=== PATIENT | female | born 1985 | race Caucasian/White ===

== ENCOUNTER 2020-09-03 21:07 | Emergency (ER) | payer BC, SELFPAY ==
[2020-09-03 21:31] VITALS: BP 135/82; PULSE 108; RESP 20; TEMP 36.7; O2SAT 100
--- NOTE | 2020-09-04 00:13 | ECG_ITS ---
Measurements Intervals [place] Rate: 71 P: 21 VT: 176 QRS: 66 QRSD: 101 T: 44 QT: 404 QTc: 440 Interpretive Statements SINUS RHYTHM BORDERLINE T WAVE ABNORMALITY- ANTERIOR LEADS BORDERLINE ECG Electronically Signed On 09-04-2020 6:52:44 CDT by Jamar Jones D.O.
--- NOTE | 2020-09-04 00:14 | ED.ANXIETY ---
HPI - Anxiety General Chief Complaint: Anxiety Stated Complaint: Feels cold,tingling fingers and hands Time Seen by Provider: 09/04/20 00:13 History of Present Illness HPI narrative: SHe was lying in bed when she noticed that her arms and legs felt cold. Then she developed numbness in her finger tips and her heart started racing. She took her buspirone, but her symptoms did not resolve. On my evaluation her symptoms have mostly resolved, but she reports feeling a little off and jesus tired. She has a h/o anxiety and panic attacks Related Data Allergies Allergy/AdvReac Type Severity Reaction Status Date / Time MOXIFLOXACIN HCL Allergy Mild Nausea and Uncoded 09/04/20 00:16 Vomiting Review of Systems Constitutional: Constitutional: Reports chills and Denies fever(s) Cardiovascular: Cardiovascular: Reports chest pain Respiratory: Respiratory: Denies dyspnea Neurologic: Reports dizziness, Reports numbness and Denies weakness Psychiatric: Psychiatric: Reports anxiety [facility] Past Medical History Medical History (Updated 09/04/20 @ 04:13 by Nate Fonseca MD) Anxiety disorder, unspecified Family History Family History Other Family history of lung cancer Hypertension Social History Social History Smoking status: Smoker, status unknown Alcohol intake: current Exam Const: General: healthy appearing, no acute distress and alert Orientation/consciousness: patient oriented x3 HENMT: Head: normal to inspection Neck: Neck: normal visual inspection and no lymphadenopathy Chest: Chest palpation & inspection: no tenderness Resp: Effort & Inspection: normal respiratory effort Auscultation: clear to auscultation bilaterally, no rales, no rhonchi and no wheezes Cardio: Jugular venous distension: no JVD Rate: regular rate Rhythm: regular rhythm Heart sounds: no murmurs GI: Inspection: non-distended GI Palp: Yes Soft to palpation and No Tenderness to palpation present (GI) Skin: General skin exam: normal color Neuro: General: patient oriented x3 and moves all extremities Speech: normal speech Extrem: General: no edema Psych: Appearance: well kempt Affect: Anxious affect present Course Vital Signs Vital signs: Vital Signs Temperature 36.7 C 09/03/20 21:31 Pulse Rate 108 H 09/03/20 21:31 Respiratory Rate 20 09/03/20 21:31 Blood Pressure 135/82 09/03/20 21:31 Pulse Oximetry 100 09/03/20 21:31 Temperature 36.3 C L 09/04/20 00:51 Pulse Rate 72 09/04/20 00:51 Respiratory Rate 16 09/04/20 00:51 Blood Pressure 112/51 L 09/04/20 00:51 Pulse Oximetry 98 09/04/20 00:51 MDM - Anxiety Differential Diagnosis Differential diagnosis: Likely panic disorder and acute anxiety Medical Records Attestation: I reviewed the patient's medical records. ECG Data EKG #1: Attestation: I personally reviewed and interpreted this ECG as follows: EKG Interpretation: normal rate, sinus rhythm, no ectopy, no ST changes, normal QRS, normal QT and NL axis Discharge Plan Discharge Clinical Impression: Panic disorder Patient Disposition: Home, Self-Care Condition: Stable Instructions: Panic Disorder (ED) Prescriptions: No Action hydroxyzine pamoate [Vistaril] 25 mg capsule 25 mg PO TID PRN (Reason: anxiety) Qty: 20 RF: 0 buspirone 7.5 mg tablet See Rx Instructions .ROUTE .COMPLEX Qty: 180 RF: 0 escitalopram oxalate 20 mg tablet 20 mg PO DAILY Qty: 90 RF: 1 bupropion HCl 150 mg tablet extended release 24 hr 150 mg PO QAM Qty: 90 RF: 1 Follow-up/Referrals: Prem Silva MD [Primary Care Provider] -
[2020-09-04 00:51] VITALS: BP 112/51; PULSE 72; RESP 16; TEMP 36.3; O2SAT 98
== END 2020-09-04 00:52 | disposition home or self-care (01) ==
PROVIDERS: Emergency Provider Emergency Medicine; PCP Family Medicine
DX: F41.0 Panic disorder [episodic paroxysmal anxiety] (principal); R94.31 Abnormal electrocardiogram [ECG] [EKG]
CPT/HCPCS: 93005; 99283

== ENCOUNTER 2020-11-07 06:46 | Outpatient (NON) | payer BC, SELFPAY ==
[2020-11-08 00:44] LABS: SARS-CoV-2 RNA PCR Negative
== END 2020-11-07 06:47 ==
LOC: ANHCOVIDDT 06:54
PROVIDERS: Visit Provider Nurse Practitioner Family
DX: R09.81 Nasal congestion (principal); Z20.828 Contact with and (suspected) exposure to other viral communicable diseases
CPT/HCPCS: 87635; C9803; U0003

== ENCOUNTER 2021-03-26 09:07 | Outpatient (CLI) | payer BC, SELFPAY ==
--- NOTE | 2021-03-30 12:34 | WPDHOLTEREM ---
Holter/Event Monitor Holter/Event Monitor Date of procedure: 03/26/21 Procedure Type: 48 hour holter monitor Indications: Palpitations Conclusion: 1. 48 hour holter monitor on 03/26/21. 2. Underlying rhythm is sinus rhythm. HR range 62-143 bpm; average HR 89 bpm. 3. There are 3 premature supraventricular complexes and 1 supraventricular couplet. No supraventricular tachycardia. 4. There are 10 premature ventricular complexes. No ventricular tachycardia. 5. No sinoatrial or atrioventricular blocks. No significant pauses greater than 2 seconds. 6. Patient reports symptoms of feeling hot, chest pains, rib pain which demonstrate sinus rhythm, HR range 75-97 bpm.
== END 2021-03-26 09:08 | disposition home or self-care (01) ==
PROVIDERS: PCP Family Medicine; Visit Provider Physician Assistant Medical
DX: R00.2 Palpitations (principal)
CPT/HCPCS: 93225; 93226

== ENCOUNTER 2021-08-13 08:37 | Outpatient (CLI) | payer OTHER, BC, SELFPAY ==
[2021-08-13 09:06] LABS: Basophils Percent Auto 0.2 % (0.2-1.2); Eosinophils Absolute Auto 0.2 K/mm3 (0-0.3); Eosinophils Percent Auto 2.2 % (0-4.4); Hematocrit 41.6 % (37.0-47.0); Hemoglobin 13.8 g/dL (12.0-15.0); Immature Granulocyte Absolute 0.05 K/mm3 (0.00-0.031); Immature Granulocyte Percent A 0.6 % (0-0.5); Lymphocytes Absolute Auto 2.84 K/mm3 (0.9-3.2); Lymphocytes Percent Auto 31.3 % (18.3-44.2); Mean Corpuscular HGB Conc 33.2 g/dl (32-36); Mean Corpuscular Hemoglobin 29.2 pg (26-34); Mean Corpuscular Volume 87.9 fl (80-100); Mean Platelet Volume 10.5 fl (7.4-10.4); Monocytes Absolute Auto 0.7 K/mm3 (0.1-0.6); Monocytes Percent Auto 7.6 % (2.6-8.5); Neutrophils Absolute Auto 5.3 K/mm3 (1.3-6.7); Neutrophils Percent Auto 58.1 % (45.5-73.1); Platelet Count Result 304 k/mm3 (150-375); Red Blood Count 4.73 M/mm3 (4.2-5.4); Red Cell Distribution Width 12.2 % (11.5-14.5); White Blood Count 9.1 K/mm3 (4.5-10.0)
== END 2021-08-13 08:38 | disposition home or self-care (01) ==
PROVIDERS: PCP Family Medicine; Visit Provider Obstetrics & Gynecology
DX: D21.9 Benign neoplasm of connective and other soft tissue, unspecified (principal); Z01.818 Encounter for other preprocedural examination
CPT/HCPCS: 36415; 85025; 86850; 86900; 86901

== ENCOUNTER 2021-08-20 02:00 | Day surgery (SDC) | payer OTHER, BC, SELFPAY ==
[2021-08-12 12:37] VITALS: BMI 40.1
--- NOTE | 2021-08-18 07:46 | PM.IMHP ---
H&P: HPI History of Present Illness Date/Time: 08/18/21 07:46 35 year para for salpingectomy. This patient has a history of pelvic pain dyspareunia discomfort she has an uterus is been refractory to therapy risks and benefits reviewed including exclusive of , aspiration bleeding, transfusion, perforation injury to bowel, bladder, ureters, or other internal organs with need for open laparotomy. She understands this will make her permanently infertile. She received the [employer] handout entitled hysterectomy as well as the [place] handout. She had all questions answered. She asked to proceed Chief Complaint: Enlarged uterus with pelvic pain and irregular bleeding refractory to medical therapy Review of Systems Review of Systems: All systems reviewed & are unremarkable except as noted in HPI and below PMFSH Past Medical History Medical History Abnormal laboratory test Adult BMI 37.0-37.9 kg/sq m Anxiety disorder, unspecified BMI 35.0-35.9,adult Family History Family History Other Family history of lung cancer Hypertension Social History Social History Smoking packs per day: 0.75 Smoking cigarettes per day: 15.0 Years smoked: 23 Smoking pack-years: 17.25 Smoking status: Current every day smoker Tobacco type: cigarettes Second hand tobacco smoke exposure: No Alcohol intake: current Drinks per week: 10 Alcohol use details: all different kinds Substance use: never Substance use type: does not use Gender identity (if verbalized by the patient): Female Spiritual care concerns: No Meds Home Medications and Allergies Home Medications Medication Instructions Recorded Confirmed Type norethindrone 1 mg-ethinyl 1 tablet PO DAILY #140 tablet 10/19/20 08/12/21 Rx estradiol 10 mcg (24)-iron 10 mcg(2) tablet escitalopram oxalate 20 mg tablet 20 mg PO DAILY #90 tablet 04/26/21 08/12/21 Rx bupropion HCl 150 mg 24 hr tablet, 150 mg PO QAM #90 tablet 05/14/21 08/12/21 Rx extended release buspirone 7.5 mg tablet See Rx Instructions .ROUTE 07/25/21 08/12/21 Rx .COMPLEX #180 tablet cholecalciferol (vitamin D3) 125 125 mcg PO DAILY 08/09/21 08/12/21 History mcg (5,000 unit) capsule multivitamin-ferrous 1 tablet PO DAILY 08/09/21 08/12/21 History fumarate-folic acid 18 mg-400 mcg tablet Allergies Allergy/AdvReac Type Severity Reaction Status Date / Time MOXIFLOXACIN HCL AdvReac Mild Nausea and Uncoded 08/12/21 13:04 Vomiting Exam Const: General: no acute distress Eyes: General: appearance normal, both eyes and all related structures Neck: Neck: supple and no JVD Thyroid: thyroid normal Resp: Effort & Inspection: normal respiratory effort Auscultation: clear to auscultation bilaterally Cardio: Rate: regular rate Rhythm: regular rhythm GI: Inspection: non-distended GI Palp: Yes Soft to palpation, No Tenderness to palpation present (GI) and No Guarding due to palpation present (GI) Auscultation: normal bowel sounds : External Female Exam: normal external appearance Speculum Exam - Vagina: normal appearance of the vagina Speculum Exam - Cervix: normal appearance of the cervix Bimanual exam- vagina & uterus: enlarged and Uterine tenderness Bimanual Exam- Adnexa, other: normal adnexae Skin: General skin exam: no rashes or lesions noted Extrem: General: normal to inspection and no edema Psych: Mental Status: mental status grossly normal Affect: normal affect Assessment and Plan Additional Plan Impression: Enlarged uterus with pelvic pain and irregular bleeding refractory to medical therapy Plan: Robotic total vaginal hysterectomy salpingectomies
[2021-08-20] VITALS (12 sets, daily range): BP systolic 109–128; BP diastolic 52–75; PULSE 68–105; RESP 14–18; TEMP 36.5–37.5; O2SAT 92–100
--- NOTE | 2021-08-20 07:09 | WPDHPUPDATE1 ---
History and Physical Update Update Date/Time: 08/20/21 07:09 History and Physical has been reviewed, including an updated exam of the patient. There are NO changes in the patient's condition. Risks, benefits, and alternatives have been discussed and questions answered. Patient agrees to proceed with procedure.
[2021-08-20] MEDS: LACTATED RINGERS 1,000 ML 30 ML IV CONT ×2 (08:07→11:09)
[2021-08-20] MEDS: KETOROLAC 15 MG/ML VIAL (*BKC) IV PUSH (08:08)
[2021-08-20] MEDS: ACETAMINOPHEN 500 MG TABLET 1000 MG PO (08:08)
--- NOTE | 2021-08-20 08:08 | WPDANESEPPF ---
Anes - Initial Pre Proc Eval Procedure: Operation Date: 08/20/21 09:30 Proposed Procedures p Robotic Assisted Total Vaginal Hysterectomy, with Bilateral Salpingectomy - Sony Schumacher MD Date/Time: 08/20/21 08:08 Surgeon: Sony Schumacher MD Pre Op Diagnosis: irregular bleeding,enlarged uterus,pelvic pain, Patient Data Age: 35 Gender: F Height: 1.6 m Weight: 102.8 kg Last Vital Signs Temp 36.6 C 08/20/21 07:38 Pulse 105 H 08/20/21 07:38 Resp 18 08/20/21 07:38 BP 128/75 08/20/21 07:38 Pulse Ox 100 08/20/21 07:38 Allergies Allergy/AdvReac Type Severity Reaction Status Date / Time MOXIFLOXACIN HCL AdvReac Mild Nausea and Uncoded 08/20/21 07:47 Vomiting Home Medications Medication Instructions Recorded Confirmed Type norethindrone 1 mg-ethinyl 1 tablet PO DAILY #140 tablet 10/19/20 08/20/21 Rx estradiol 10 mcg (24)-iron 10 mcg(2) tablet escitalopram oxalate 20 mg tablet 20 mg PO DAILY #90 tablet 04/26/21 08/20/21 Rx bupropion HCl 150 mg 24 hr tablet, 150 mg PO QAM #90 tablet 05/14/21 08/20/21 Rx extended release buspirone 7.5 mg tablet See Rx Instructions .ROUTE 07/25/21 08/20/21 Rx .COMPLEX #180 tablet cholecalciferol (vitamin D3) 125 125 mcg PO DAILY 08/09/21 08/20/21 History mcg (5,000 unit) capsule multivitamin-ferrous 1 tablet PO DAILY 08/09/21 08/20/21 History fumarate-folic acid 18 mg-400 mcg tablet hydrocodone-acetaminophen 1 tablet PO Q4H PRN #30 tablet 08/20/21 Rx Patient hx anesthesia problems: none and other (motion sickness) Family hx anesthesia problems: none Results Review: All pre-operative results and documents have been reviewed as part of the pre-operative evaluation. [facility] Past Medical History Medical History (Updated 08/20/21 @ 08:11 by Stas Dash MD) Abnormal laboratory test Adult BMI 37.0-37.9 kg/sq m Anxiety disorder, unspecified BMI 35.0-35.9,adult Psoriasis Tobacco abuse Family History Family History Other Family history of lung cancer Hypertension Social History Social History Smoking packs per day: 0.75 Smoking cigarettes per day: 15.0 Years smoked: 23 Smoking pack-years: 17.25 Smoking status: Current every day smoker Tobacco type: cigarettes Second hand tobacco smoke exposure: No Alcohol intake: current Drinks per week: 10 Alcohol use details: all different kinds Substance use: never Substance use type: does not use Living arrangements: with family Gender identity (if verbalized by the patient): Female Spiritual care concerns: No Anes - Eval Final PreProcedure Day of Procedure 08/20/21 08:08 Patient weight: morbidly obese Heart: regular rate and rhythm Lungs: clear to auscultation Airway: Mallampati scale class II Neurological: alert and oriented Last oral intake: >/= 8 hours ASA classification: III Emergent: no Anesthetic plan: proceed Anesthesia type and monitoring: general ETT and standard monitoring Results Review: All pre-operative results and documents have been reviewed as part of the pre-operative evaluation. Informed Consent: The patient's anesthetic plan and its attendant risks and benefits were discussed with the patient/family/POA. Questions were solicited and answers provided to the satisfaction of the patient/family/POA.
[2021-08-20] MEDS: SCOPOLAMINE 1.5 MG PATCH TRANSDERM (09:07)
[2021-08-20] MEDS: ceFAZolin 2 GM/D5W 50 ML 2 GM/50 ML BAG IVPB (09:43)
--- NOTE | 2021-08-20 10:55 | P.OP_ITS ---
Procedure Note - Detailed Date of Procedure 08/20/21 Pre-op Diagnosis irregular bleeding,enlarged uterus,pelvic pain, Post-op Diagnosis same Procedure Performed Robotic total vaginal hysterectomy and bilateral salpingectomies Surgeon Sony Schumacher MD Anesthesia general Indications this is a 35-year-old female with irregular bleeding enlarged uterus and chronic pelvic pain Findings enlarged uterus. Normal-appearing ovaries and tubes Description of Procedure the patient was prepped and draped in the normal sterile fashion placed in the dorsal lithotomy position. Under excellent general endotracheal anesthesia weighted speculum placed in posterior fornix vagina. The anterior lip of the cervix grasped with single-tooth tenaculum and the uterus sounded to 10cm. Serial dilatation with fragmented dilators performed followed by passage of the 10 DAO and the 3. Cold cup. Next the 16 Chinese catheter was placed in the bladder and drained of clear urine. The remainder the instruments removed and gloves were changed. A supraumbilical incision made in the [place] needle passed in the abdomen. The abdomen filled with CO2 gas to 15mm Hg. The 8mm trocar advanced under direct visualization and no injury seen. Patient placed in Trendelenburg and right and left lateral quadrant incisions made. The 8mm trocars were advanced under direct visualization assuring no injury. A right upper quadrant incision made the 8mm trocar advanced under direct visualization assuring no injury. The robot was docked. A bladder flap was formed by sharply dissecting the peritoneum and reflecting the bladder caudally. Attention was turned to the procedure. The left round ligament was grasped, burned, cut. The right round ligament was grasped, burned, cut. Next the left fallopian tubewas grasped and dissected away from the ovary. The right fallopian tube was dissected away from the right ovary and remained attached to the uterus. Next the left utero-ovarian ligament was clamped, burned, cut. This conserve the left ovary. Conserving the right ovary the utero-ovarian ligament was clamped, burned, cut. Next the cardinal and broad ligaments were serially. Skeletonized on the left clamped, burned, cut and brought down to level of the uterine vessels. The uterine vessels were large and tortuous. These were individually clamped, burned, cut. In like fashion the cardinal broad ligaments on the right were serially skeletonized. These were clamped, burned, cut and brought down to the level of previous of the vessels. Each uterine vessels then clamped, burned, cut excellent blanching was seen a colpotomy incision was then made in the cervix uterus and tubes removed through the vagina. Hemostasis was assured. The vagina was closed with continuous running 0V lock from lateral edge to lateral edge back to the midline. Irrigation undertaken and the pedicles were noted to be clear. The robot was undocked and the gas removed from the abdomen. The trocars removed and the inc isions closed 4 Monocryl glue. The patient was awakened. All sponge, needle, instrument counts were correct. There were no immediate complications Estimated Blood Loss 25 Drains No Packing No Pathology yes Complications No immediate complications Condition stable Disposition PACU
[2021-08-20] MEDS: fentaNYL CITRATE INJ (*CRX) 100 MCG/2 ML VIAL 25 MCG IV PUSH ×3 (11:30→12:07)
[2021-08-20] MEDS: DEXTROSE 5%/0.45% SOD CHL 1,000 ML 125 ML IV CONT (12:41)
[2021-08-20] MEDS: KETOROLAC 30 MG/ML VIAL (*BKC) IV PUSH (12:42)
--- NOTE | 2021-08-20 12:56 | ADMGEN ---
1222-This patient, Prabha Torre, was admitted to OB 2nd Floor Room 282-00. Patient/family oriented to hospital policies and general routines including ID bracelet, bed and alarms, visiting hours, pain management, procedures, bathroom and other care routines, personal items, smoking policy, room service/diet, and visiting hours. Information on how to activate the Rapid Response Team has been discussed. Patient/Family are encouraged to report perceived risks to care and to ask questions if they do not understand what they are told or what they should do.
[2021-08-20] MEDS: HYDROcodone/acetaminophen (*CRX) 5-325 MG TABLET 1 TAB PO ×2 (16:57→20:49)
[2021-08-20] MEDS: DOCUSATE SODIUM 100 MG CAPSULE PO (16:58)
[2021-08-20] MEDS: IBUPROFEN 600 MG TABLET PO (20:49)
[2021-08-21 05:00] VITALS: BP 121/73; PULSE 72; RESP 18; TEMP 36.4; O2SAT 100
[2021-08-21 05:24] LABS: Basophils Percent Auto 0.1 % (0.2-1.2); Eosinophils Percent Auto 0.1 % (0-4.4); Hematocrit 37.4 % (37.0-47.0); Hemoglobin 12.5 g/dL (12.0-15.0); Immature Granulocyte Percent A 0.6 % (0-0.5); Lymphocytes Absolute Auto 2.58 K/mm3 (0.9-3.2); Lymphocytes Percent Auto 15.1 % (18.3-44.2); Mean Corpuscular HGB Conc 33.4 g/dl (32-36); Mean Corpuscular Hemoglobin 29.6 pg (26-34); Mean Corpuscular Volume 88.4 fl (80-100); Mean Platelet Volume 10.6 fl (7.4-10.4); Monocytes Absolute Auto 0.8 K/mm3 (0.1-0.6); Monocytes Percent Auto 4.7 % (2.6-8.5); Neutrophils Absolute Auto 13.6 K/mm3 (1.3-6.7); Neutrophils Percent Auto 79.4 % (45.5-73.1); Platelet Count Result 297 k/mm3 (150-375); Red Blood Count 4.23 M/mm3 (4.2-5.4); Red Cell Distribution Width 12.2 % (11.5-14.5); White Blood Count 17.1 K/mm3 (4.5-10.0)
[2021-08-21] MEDS: ENOXAPARIN 40 MG/0.4 ML SYRINGE SUB-Q (06:40)
[2021-08-21] MEDS: IBUPROFEN 600 MG TABLET PO (06:40)
[2021-08-21] MEDS: DOCUSATE SODIUM 100 MG CAPSULE PO (06:40)
[2021-08-21] MEDS: HYDROcodone/acetaminophen (*CRX) 5-325 MG TABLET 1 TAB PO (06:42)
[2021-08-21 07:05] VITALS: BP 111/56; PULSE 67; RESP 16; TEMP 36.9; O2SAT 100
--- NOTE | 2021-08-21 07:22 | PM.DS ---
DS: Admitting Diagnosis Discharge Date 08/21/21 Admitting Diagnosis pelvic pain DS: Summary Hospital Course Hospital Course: Prabha Torre was admitted after robotic assisted total laparoscopic hysterectomy and bilateral salpingectomy for pelvic pain. The above procedure was performed with no complications. She is doing well post op. She states her pain is well controlled with PO medications. She reports minimal bleeding. She is ambulating up to the chair. Her bruno catheter was removed. She is tolerating PO without N/V. She reports passing flatus. Status at Discharge Overall status at discharge: patient is progressing back to baseline Time Spent with Patient Time attestation: Total time spent providing and/or coordinating discharge services: Time spent: Less than 30 minutes Exam Const: General: comfortable and no acute distress Limitations: no limitations Resp: Effort & Inspection: normal respiratory effort Auscultation: clear to auscultation bilaterally Cardio: Rate: regular rate Rhythm: regular rhythm GI: Inspection: non-distended GI Palp: Yes Soft to palpation, Yes Tenderness to palpation present (GI) (milder tenderness to deep palpation) and No Guarding due to palpation present (GI) Auscultation: normal bowel sounds Other: incisions C/D/I covered with dermabond Urinary Catheter: Urinary Catheter: urine clear Skin: General skin exam: normal color Extrem: General: normal to inspection Psych: Mental Status: mental status grossly normal Affect: normal affect DS: Data Data Completed and Pending Pending studies at discharge: Pending at discharge 08/20/21 10:24 Surgical [PTH] Routine Labs on day of discharge: Labs from last 24 hours 08/21/21 04:50 WBC 17.1 H RBC 4.23 Hgb 12.5 Hct 37.4 MCV 88.4 MCH 29.6 MCHC 33.4 RDW 12.2 Plt Count 297 MPV 10.6 H Immature Gran % (Auto) 0.6 H Neut % (Auto) 79.4 H Lymph % (Auto) 15.1 L [place] % (Auto) 4.7 Eos % (Auto) 0.1 Baso % (Auto) 0.1 L Lymph # (Auto) 2.58 [place] # (Auto) 0.8 H Eos # (Auto) 0.0 Baso # (Auto) 0.0 Abs Immat Gran (auto) 0.10 H Absolute Neuts (auto) 13.6 H Absolute Nucleated RBC 0.0 Nucleated RBC % 0.0 Discharge Plan Discharge Patient Disposition: Home, Self-Care Stand Alone Forms: General Discharge Instructions Follow-up/Referrals: Sony Schumacher MD [Physician] - Discharge Medications: New hydrocodone-acetaminophen 5-325 mg tablet 1 tablet PO Q4H PRN (Reason: pain) Qty: 30 RF: 0 No Action Lo Loestrin Fe 1 mg-10 mcg (24)/10 mcg (2) tablet 1 tablet PO DAILY Qty: 140 RF: 0 cholecalciferol (vitamin D3) 125 mcg (5,000 unit) capsule 125 mcg PO DAILY RF: 0 Centrum Complete 18-400 mg-mcg tablet 1 tablet PO DAILY RF: 0 escitalopram oxalate 20 mg tablet 20 mg PO DAILY Qty: 90 RF: 1 bupropion HCl 150 mg tablet extended release 24 hr 150 mg PO QAM Qty: 90 RF: 1 buspirone 7.5 mg tablet See Rx Instructions .ROUTE .COMPLEX Qty: 180 RF: 0
== END 2021-08-21 08:57 | disposition home or self-care (01) ==
LOC: ANHSURGERY 07:23 → ANHOB2 12:26
PROVIDERS: PCP Family Medicine; Visit Provider Obstetrics & Gynecology
PROC: (CPT 58552; principal; 2021-08-20 09:30)
DX: N92.6 Irregular menstruation, unspecified (principal); R10.2 Pelvic and perineal pain; N80.0 Endometriosis of uterus; N73.6 Female pelvic peritoneal adhesions (postinfective); L40.9 Psoriasis, unspecified; F41.9 Anxiety disorder, unspecified; F17.210 Nicotine dependence, cigarettes, uncomplicated; E66.01 Morbid (severe) obesity due to excess calories; Z68.41 Body mass index [BMI] 40.0-44.9, adult
CPT/HCPCS: 58552; S2900; 36415; 85025; 86850; 86900; 86901; 88307; 99199; A9270; J0690; J1100; J1170; J1650; J1885; J2250; J2405; J2704; J2710; J3010; J7030; J7120

== ENCOUNTER 2022-05-12 08:30 | Outpatient (RCR) | payer OTHER, BC, SELFPAY ==
[2022-03-02 08:17] VITALS: BMI 41.5
[2022-03-31 08:00] VITALS: BMI 41.5
[2022-03-31 08:02] VITALS: BMI 41.5
[2022-05-12 08:27] VITALS: BMI 42.0
[2022-05-12 08:29] VITALS: BMI 42.0
== END 2022-05-16 11:16 | disposition home or self-care (01) ==
LOC: ANHDMC 08:30
PROVIDERS: PCP Family Medicine; Visit Provider Internal Medicine Endocrinology, Diabetes & Metabolism
DX: E66.01 Morbid (severe) obesity due to excess calories (principal); Z71.3 Dietary counseling and surveillance
CPT/HCPCS: 97802; 97803